=== PATIENT | female | born 1990 | race Caucasian/White ===

== ENCOUNTER 2017-12-27 09:26 | Inpatient (IN) ==
[2017-12-27] MEDS ORDERED: Metoclopramide 10 MG/2 ML VIAL IVP PRN (10:00)
[2017-12-27] MEDS ORDERED: Ringers Solution, Lactated 1,000 ML IVC SCH (10:00)
[2017-12-27] MEDS ORDERED: *HR* Nalbuphine 10 MG/ML AMPUL IVP PRN (10:00)
[2017-12-27] MEDS ORDERED: Naloxone 0.4 MG/ML INJ IVP PRN (10:00)
[2017-12-27] MEDS ORDERED: Famotidine 20 MG/2 ML VIAL IVP PRN (10:00)
[2017-12-27] MEDS ORDERED: miSOPROStol 25 MCG TABLET VG SCH (10:30)
[2017-12-27 10:50] LABS: Basophils # 0.1 K/mcL (0.0-0.2); Basophils % 0.5 %; Eosinophils # 0.1 K/mcL (0.0-0.6); Eosinophils % 0.8 %; Hematocrit 33.2 % (35.3-44.9); Immature Granulocytes % 1.8 % (0-4); Lymphocytes # 1.4 K/mcL (0.6-4.6); Lymphocytes % 14.7 %; Mean Corpuscular HGB Conc 33.1 g/dL (31.6-35.5); Mean Corpuscular Hemoglobin 28.1 pg (28.0-33.3); Mean Corpuscular Volume 84.7 fL (83.0-100.0); Monocytes # 0.7 K/mcL (0.0-1.3); Monocytes % 7.1 %; Platelet Count 312 K/mcL (140-400); Red Blood Count 3.92 M/mcL (3.82-4.97); Red Cell Distribution Width 13.9 % (11.5-14.5); Segmented Neutrophils % 75.1 %
[2017-12-27 11:15] LABS: Amphetamine Screen,Urine Negative ng/mL (Cutoff=1000); Barbiturate Screen,Urine Negative ng/mL (Cutoff=200); Benzodiazepines Screen,Urine Negative ng/mL (Cutoff=200); Cannabinoid Screen,Urine Negative ng/mL (Cutoff = 50); Cocaine Screen,Urine Negative ng/mL (Cutoff= 300); Opiate Screen,Urine Negative ng/mL (Cutoff=300); Phencyclidine Screen,Urine Negative ng/mL (Cutoff=25)
--- NOTE | 2017-12-27 11:36 | OB Labor Progress Note ---
Date of Encounter: 12/27/17 Time of Encounter: 11:34 Labor Progress Note - Subjective Subjective: Pt denies complaints at this time. - Cervix Cervix: /- - Heart Tones Heart Tones: Category I - Interventions Interventions: Neff balloon placed above cervix using sterile technique. Balloon inflated with 40ml sterile water. Pt tolerated well. - Plan Plan: Continue to monitor. Epidural if requested. Anticipate vaginal delivery. POC per Dr. Guevara
--- NOTE | 2017-12-27 11:55 | OB/GYN History & Physical ---
Date of Encounter: 12/27/17 Time of Encounter: 11:43 Assessment and Plan (1) 39 weeks gestation of Current visit: Yes Status: Acute Admit for IOL. Neff balloon in place. Cytotec given. Epidural when requested. Anticipate vaginal delivery. (2) History of substance abuse Current visit: Yes Status: Acute H/o of Heroin use, last used 3 years ago. Subutex used ~ 1mo at that time. H/ o THC use, last used March 2017. (3) Anxiety Current visit: Yes Status: Acute Reports anxiety. Denies medication management. Report good mood. (4) Hepatitis C Current visit: Yes Status: Acute VL in 2014 was [id number]. Pt to follow-up with PCP after delivery. Qualifiers: Viral hepatitis chronicity: chronic Hepatic coma status: without hepatic coma Qualified Code(s): B18.2 - Chronic viral hepatitis C (5) Rh negative status during Current visit: Yes Status: Acute Rhogam PP if indicated. Qualifiers: Trimester: third trimester Qualified Code(s): O09.893 - Supervision of other high risk pregnancies, third trimester; Z67.91 - Unspecified blood type, Rh negative History of Present Illness HPI: Ms. Griffin is a 27 year old female presenting at 39w6d for IOL. complicated by Hep C positive, h/o Heroin & THC use, and anxiety. Patient states it has been 3 years since she used Heroin, was on Subutex for ~1 month at that time. Reports her last use of THC was March 2017 prior to finding out she was . Reports good FM. B Positive GBS Negative Rubella Immune Hep C positive Urine Tox Negative HIV, Hep B, GC/CT, Syphillis Negative Past Med Surg Social Fam HX - Past Medical History Medical history: no medical history Additional medical history: endometriosis. hepatits c Psychiatric history: anxiety - Past Surgical History Surgical History: appendectomy - Social History Smoking Status: Never smoker Smokeless Tobacco Status: No Alcohol use: none Drug use: none - Family History Mother Living Status: Still Living Hx Family Cardiac Disorders: No Hx Family Respiratory Disorders: No Hx Family Cancer: No Hx Family GI Disorders: No Hx Family Genitourinary Disorders: No Hx Family Endocrine Disorder: No Hx Family Musculoskeletal Disorders: No Hx Family Neuromuscular Disorders: No Hx Family Neurologic Disorders: No Hx Family HEENT Disorders: No Hx Family Autoimmune Disorders: No Hx Family Reproductive Disorders: No Hx Family Psychosocial Disorders: No Hx Family Medical Disorders: No Obstetrical History - Pregnancies : 1 Para: 0 Medications and Allergies Ferrous Sulfate [Iron] 1 tab PO DAILY 12/27/17 [History] Vit Calc,Iron,Folic [ Vitamins] 1 tab PO DAILY 12/27/17 [ History] 3 Allergy/AdvReac Type Severity Reaction Status Date / Time No Known Allergies Allergy Verified 12/27/17 09:56 Review of System OB All systems PM: reviewed and no additional remarkable complaints except as stated - Psychiatric Psychiatric: anxiety (Feels mood is good. ) Exam - Constitutional Constitutional: well developed, well nourished, no acute distress, average body habitus - Lungs Respiratory exam: CTAB - Cardiovascular Cardiovascular exam: RRR, +S1, +S2 - Abdomen Abdomen: Present: bowel sounds normal, gravid, non tender - Extremities Extremities exam: normal inspection - Cervix Dilation: 1 Effacement: 70 Station: -1 - Anus/Rectum Anus/Rectum: Present: normal perianal skin Results Result Diagrams: 12/27/17 10:18 Abnormal lab results Hgb 11.0 g/dL (11.5-15.4) L 12/27/17 10:18 Hct 33.2 % (35.3-44.9) L 12/27/17 10:18 All other labs normal. - VTE Reasons for not Prescribing Prophylaxis: Treatment not Indicated - Low risk for VTE
--- NOTE | 2017-12-27 16:43 | OB Labor Progress Note ---
Date of Encounter: 12/27/17 Time of Encounter: 16:40 Labor Progress Note - Subjective Subjective: Pt denies significant pain at this time. - Cervix Cervix: 4-5 - Heart Tones Heart Tones: Category I - Interventions Interventions: AROM for moderate amount clear fluid. IUPC placed. - Plan Plan: Continue to monitor. Anticipate vaginal delivery.
[2017-12-27] MEDS ORDERED: Bupivacaine-MPF 0.25% 10 ML VIAL EP ONE (18:01)
[2017-12-27] MEDS ORDERED: *HR* FentaNYL (PF) 100 MCG/2 ML VIAL EP ONE (18:01)
[2017-12-27] MEDS ORDERED: Lidocaine -MPF 2% 5 ML VIAL ONE (18:04)
[2017-12-27] MEDS ORDERED: Epidural Premix (fent/bupiv) 110 ML EP ONE (18:05)
[2017-12-27] MEDS ORDERED: Epidural Premix (fent/bupiv) 110 ML EP SCH (18:15)
--- NOTE | 2017-12-27 19:14 | Anesthesia Evaluation PreOp ---
Date of Encounter: 12/27/17 Time of Encounter: 17:54 - Past History Planned Operation: labor epidural Cardiac History: Denies any Significant Hx Pulmonary History: Denies Any Significant HX POLICY SPECIALIST History: Denies Any Significant HX Other Medical History: Hepatic (Hep C positive due to IV drug use 3 years ago.) Anesthesia History: No Prior Anesthetic Complications, Past Anesthesia (appy. No FHAP.) : Yes Alcohol Use: none Drug use: none Medications and Allergies Ferrous Sulfate [Iron] 1 tab PO DAILY 12/27/17 [History] Vit Calc,Iron,Folic [ Vitamins] 1 tab PO DAILY 12/27/17 [ History] 3 Allergy/AdvReac Type Severity Reaction Status Date / Time No Known Allergies Allergy Verified 12/27/17 09:56 - Meds/Allergy Pre-op Review Medications Reviewed: Yes Allergies Reviewed: Yes Beta Blockers on Current Med List: No Anesthesia Results - Labs 12/27/17 10:18 Anesthesia Exam 129/79, 77, 16. FHTs 130s. Height: 5'7" Weight: 82kg NPO (# of Hours): 9 Pain Scale: 7 Pain Scale Used: Numeric (1 - 10) - HEENT Pupil (Motor): Pupils equal, EOMI Mallampati: II Teeth: Normal Oral Opening: Greater than 3 - POLICY SPECIALIST LOC: Oriented POLICY SPECIALIST Motor: Normal RUE, Normal LUE, Normal RLE, Normal LLE, Normal Face POLICY SPECIALIST Sensory: Normal: RUE, LUE, RLE, LLE, Face - Cardiac Rhythm: Regular - Pulmonary Breath Sounds: bilateral Clear Respiratory Effort: Symmetrical Anesthesia Assess/Plan ASA Score: 3 Modified [place] Scale for Level of Consciousness: Cooperative, oriented, and tranquil Anesthetic Plan: Regional Monitoring Plan: Standard Monitors
--- NOTE | 2017-12-27 19:18 | Anesthesia Procedures ---
Date of Encounter: 12/27/17 Time of Encounter: 18:07 Procedures: Anesthesia - Epidural/Spinal Patient ID/Chart reviewed: Yes Patient examined: Yes OB Eval: Gestational age: 38 OB Eval: : 2 OB Eval: Hx Para: 0 OB Eval: Dilated at (cm): 6 OB Eval: Contractions: Non-stressed pattern Consent Obtained: Yes Supplemental Oxygen: None/Room Air Site Prep: Aseptic Technique, Sterile prep and drape, Povidone-Iodine 1% Patient position: upright Local Anesthetic: Lidocaine 1% Amount of Local Anesthetic used: 3 Touhy Needle Gauge: 18 Touhy Needle Depth (cm): 6 Catheter Depth at Skin (cm): 15 Test Dose (1.5% Lido + Epi): Volume given (mls): 3 Test Dose Result: Negative Loading Dose: 0.25% Marcaine (mls): 8 Loading Dose: Fentanyl (mcg): 100 Loading Dose Administered: Thru Catheter Infusion Med: 0.125% Bupivacaine w/ 2 mcg/ml Fentanyl Infusion Rate (mls/hr): [address]: Tegaderm, Tape Interspace Used: L3-L4 Loss of Resistance (AUGUSTINE): Yes Blood: No CSF: No Paresthesia: No Vitals + FHT's: 3 Vital Signs Time 1807 1824 1830 1835 BP 129/79 103/80 125/73 118/67 Pulse 77 81 79 82 FHTs 120 120 120 120
[2017-12-27] MEDS ORDERED: Oxytocin 20 units/ LR 1000 mL 20 UNIT/1,000 ML BAG IVC ONE (19:37)
[2017-12-27] MEDS ORDERED: Oxytocin 20 units/ LR 1000 mL 20 UNIT/1,000 ML BAG IVC SCH (22:00)
--- NOTE | 2017-12-27 22:06 | OB Labor Progress Note ---
Date of Encounter: 12/28/17 Time of Encounter: 22:04 Labor Progress Note - Subjective Subjective: Pt currently comfortable, denies pain - Vital Signs Vital Signs: VSS - Cervix Cervix: 9/100/0 - Heart Tones Heart Tones: FHR = 140-150s - Saranap Saranap: Irregular - Plan Plan: Will start Pit at 2 Cont current care Anticipate
--- NOTE | 2017-12-28 02:52 | OB/GYN Procedure Note ---
Delivery - Delivery Date: 12/28/17 Provider: Marvin Guevara Intrapartum events: none Delivery induction: pardo, misoprostol Delivery augmentation: rupture of membranes, pitocin Delivery monitor: external FHT, external uterine, internal uterine Anesthesia: local, epidural Quantitated Blood Loss: 100 - Infant (s) Infant A Infant Delivery Date: 12/28/17 Delivery Time: 02:00 Presentation: vertex Position: BEENA Route of delivery: Gender: Male Viability: Viable Pounds: 7 Ounces: 13 Weight Gram: 3.53 kg at 1 minute: 9 at 5 mins: 9 Shoulder Dystocia: not encountered Specimens collected: cord blood Placenta: spontaneous Cord: 3 umbilical vessels - Repair Episiotomy: none Laceration Description: Periurethral (bilateral), Perineal - 1st Degree - Complications Delivery complications: none Delivery comments: Patient is a 27-year-old 1 para 0 at 39-6/7 weeks who presented for induction of labor secondary to term . Patient received a Pardo catheter and Cytotec catheter fell out approximately 4 hours later she was 4-5 cm epidural was placed she was artificially ruptured with clear fluid patient progressed appropriately got to approximately 9 cm contractions became irregular she was then augmented with Pitocin once complete the patient was allowed to push. Patient was having ineffective pushing due to her epidural bladder to labor down finally decreased her epidural with patient could feel something she was then finally able to deliver a viable male infant in left occiput anterior presentation at 0200, there was no nuchal cord, no meconium, infant was suctioned on the abdomen, Apgars were 9 at one and 9 appointment, weight was 7 lbs. 13 oz. Placenta was then delivered spontaneously 3 vessel cord, DOES not [place], assistant banquet manager Dr. Funez PGY1, anesthesia epidural local, estimated blood loss 100 mL. Patient was noted to have a first- degree perineal laceration and bilateral periurethral these were repaired with 3 -0 Monocryl on the first-degree and 4-0 Vicryl on the periurethral. No other lacerations seen cervix and vagina was visualized intact. All needles laps and sponge counts were correct 3 she will be observed for 2 hours before being taken floor. - Disposition Mom disposition: stable in LDR [place] disposition: stable in LDR
[2017-12-28] MEDS ORDERED: Acetaminophen 325 MG TABLET PO PRN (04:35)
[2017-12-28] MEDS ORDERED: Oxytocin 20 units/ LR 1000 mL 20 UNIT/1,000 ML BAG IVC SCH (04:35)
[2017-12-28] MEDS ORDERED: *HR* HYDROcodone/Acet 5/325 mg TABLET PO PRN (04:35)
[2017-12-28] MEDS ORDERED: Measles/Mumps/Rubella Vacc 0.5 ML VIAL SQ PRN (04:35)
[2017-12-28] MEDS: Ibuprofen 600 MG TABLET PO PRN ×2 (08:13→18:16)
[2017-12-28] MEDS: Prenatal Vit/FA 1 EACH TABLET PO SCH (08:13)
[2017-12-28] MEDS ORDERED: NON-FORMULARY MEDICATION 1 EACH EACH (Prenatal Vit Calc,Iron,Folic [Prenatal Vitamins] 1 T PO SCH (09:00)
[2017-12-28] MEDS ORDERED: Benzocaine/Menthol 56 GM AEROSOL SPRAY TP PRN (18:19)
[2017-12-29 04:26] LABS: Basophils # 0.1 K/mcL (0.0-0.2); Basophils % 0.7 %; Eosinophils # 0.1 K/mcL (0.0-0.6); Hematocrit 29.4 % (35.3-44.9); Hemoglobin 9.5 g/dL (11.5-15.4); Immature Granulocytes % 1.2 % (0-4); Lymphocytes # 1.7 K/mcL (0.6-4.6); Lymphocytes % 15.9 %; Mean Corpuscular HGB Conc 32.3 g/dL (31.6-35.5); Mean Corpuscular Volume 86.7 fL (83.0-100.0); Mean Platelet Volume 10.3 fL (9.4-12.4); Monocytes # 0.9 K/mcL (0.0-1.3); Monocytes % 7.8 %; Platelet Count 295 K/mcL (140-400); Red Blood Count 3.39 M/mcL (3.82-4.97); Red Cell Distribution Width 14.1 % (11.5-14.5); Segmented Neutrophils % 73.4 %
[2017-12-29] MEDS: Ibuprofen 600 MG TABLET PO PRN (07:39)
[2017-12-29] MEDS: Prenatal Vit/FA 1 EACH TABLET PO SCH (07:39)
[2017-12-29 08:34] VITALS: BP 93/51
--- NOTE | 2017-12-29 08:43 | Discharge Summary ---
Date of Encounter: 12/29/17 Time of Encounter: 08:35 - Discharge Diagnosis (1) Vaginal delivery Priority: Primary Status: Acute Comments: S/P vaginal delivery day 1 Pain is well controlled Lochia is light and without clots VSS Tolerating regular diet; passing flatus Urinating without difficulty Bottle feeding Discharge home today - Discharge Medications Prescriptions: Ibuprofen [Motrin] 600 mg PO Q6HR PRN #30 tablet PRN Reason: Cramping Docusate [Colace] 100 mg PO BID PRN #30 capsule PRN Reason: Constipation Ferrous Sulfate 325 mg PO DAILY #90 tablet Home Medications: Vit Calc,Iron,Folic [ Vitamins] 1 tab PO DAILY 12/27/17 [ History] Acetaminophen [Tylenol] 650 mg PO Q6HR PRN tablet 12/29/17 [Rx] Benzocaine/Menthol [employer] [Dermoplast [employer]] 1 appl TP QID PRN aerosol 12/29/17 [Rx] Docusate [Colace] 100 mg PO BID PRN #30 capsule 12/29/17 [Rx] Ferrous Sulfate 325 mg PO DAILY #90 tablet 12/29/17 [Rx] Ibuprofen [Motrin] 600 mg PO Q6HR PRN #30 tablet 12/29/17 [Rx] Allergies/Adverse Reactions: 3 Allergy/AdvReac Type Severity Reaction Status Date / Time No Known Allergies Allergy Verified 12/27/17 09:56 Data Procedures and tests throughout hospitalization: Laboratory Tests 12/27/17 12/27/17 12/29/17 10:18 10:18 03:53 WBC 9.3 10.9 RBC 3.92 3.39 L Hgb 11.0 L 9.5 L D Hct 33.2 L 29.4 L MCV 84.7 86.7 MCH 28.1 28.0 MCHC 33.1 32.3 RDW 13.9 14.1 Plt Count 312 295 MPV 10.0 10.3 Immature Gran % 1.8 1.2 Seg Neutrophils % 75.1 73.4 Lymphocytes % 14.7 15.9 Monocytes % 7.1 7.8 Eosinophils % 0.8 1.0 Basophils % 0.5 0.7 Neutrophils # 7.0 8.0 Lymphocytes # 1.4 1.7 Monocytes # 0.7 0.9 Eosinophils # 0.1 0.1 Basophils # 0.1 0.1 Urine Opiates Screen Negative Ur Barbiturates Screen Negative Ur Phencyclidine Scrn Negative Ur Amphetamines Screen Negative U Benzodiazepines Scrn Negative Urine Cocaine Screen Negative U Marijuana (THC) Screen Negative Ur Drug Screen Interp See Below Labs on day of discharge: Labs from last 24 hours 12/29/17 03:53 WBC 10.9 RBC 3.39 L Hgb 9.5 L D Hct 29.4 L MCV 86.7 MCH 28.0 MCHC 32.3 RDW 14.1 Plt Count 295 MPV 10.3 Immature Gran % 1.2 Seg Neutrophils % 73.4 Lymphocytes % 15.9 Monocytes % 7.8 Eosinophils % 1.0 Basophils % 0.7 Neutrophils # 8.0 Lymphocytes # 1.7 Monocytes # 0.9 Eosinophils # 0.1 Basophils # 0.1 Date of admission: 12/27/17 09:26 Primary care physician: Annetta Ramirez MD Consults: 12/28/17 04:35 Consult to Biomedical Manager [CONS] Routine Comment: Vaginal delivery, consult needed Consult to Fur Sewer [CONS] Routine Reason for SW Consult: past history drug use Discharging clinician: Noemi Mora Anticipated date of discharge: 12/29/17 - Patient Status Disposition: Home, Self-Care Condition: Good Functional capacity at discharge: independent ambulation Overall status at discharge: patient is progressing back to baseline - Discharge Instructions Follow Up With: Annetta Ramirez MD [Primary Care Provider] - Marvin Guevara DO [Partnered Physician] - - Diet and Activity Activity: as per physical therapy Hospital Course Reason for admission: IUP at term Delivery: Episiotomy: none Laceration: none Other procedures: none complications: none Discharge diagnosis: IUP at term delivered baby: male Time spent discussing smoking cessation with patient: 3 to 10 minutes Time Attestation: Total time spent providing and/or coordinating discharge services: Time Spent: Less than 30 minutes Exam - Constitutional Vitals: Temp Pulse Resp BP Pulse Ox 98.0 F 58 16 93/51 98 12/29/17 07:00 12/29/17 07:00 12/29/17 07:00 12/29/17 07:00 12/28/17 19:40 General appearance IM: cooperative, A&O X 3, pleasant - Respiratory Respiratory exam: Present: CTAB - Cardiovascular Cardiovascular exam IM: Present: RRR, +S1, +S2 - GI/Abdominal GI/Abdominal exam IM: normal bowel sounds - Rectal Rectal exam: deferred - Uterine Tone: Firm Uterus Position: At Umbilicus, Midline - Extremities Exam Extremities exam IM: Present: normal capillary refill, normal inspection, radial pulses palpable and symmetrical - Neurological Exam Neurological exam: alert, oriented X3
== END 2017-12-29 11:00 | disposition home or self-care (01) | DRG 560 ==
LOC: 1NENULAB 09:26 → 1NENUOBS 12-28 04:40
PROVIDERS: ADMIT Obstetrics & Gynecology; ATTEND Obstetrics & Gynecology